=== PATIENT | female | born 2005 | race Caucasian/White ===

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

== ENCOUNTER → 2023-03-27 | Outpatient (RCR) | payer MEDICAID, OTHER ==
[2023-03-20] MEDS: cefTRIAXone 2,000 MG/NS 50 ML IVPB IV SCH ×2 (09:40)
[2023-03-20 10:05] VITALS: BP 130/78
[2023-03-21] MEDS: cefTRIAXone 2,000 MG/NS 50 ML IVPB IV SCH ×2 (09:18)
[2023-03-21] MEDS: CATHETER FLUSH 10 ML SYR IVP PRN (09:19)
[2023-03-21 09:31] VITALS: BP 102/52
[2023-03-22 09:00] VITALS: BP 127/84
[2023-03-22] MEDS: cefTRIAXone 2,000 MG/NS 50 ML IVPB IV SCH ×2 (09:02)
[2023-03-23 09:00] VITALS: BP 107/67
[2023-03-23] MEDS: cefTRIAXone 2,000 MG/NS 50 ML IVPB IV SCH ×4 (09:05→09:40)
[2023-03-23] MEDS: CATHETER FLUSH 10 ML SYR IVP PRN (09:05)
[2023-03-24 08:36] VITALS: BP 107/67
[2023-03-24] MEDS: cefTRIAXone 2,000 MG/NS 50 ML IVPB IV SCH ×2 (09:06)
[2023-03-25 08:48] VITALS: BP 107/67
[2023-03-25] MEDS: cefTRIAXone 2,000 MG/NS 50 ML IVPB IV SCH ×2 (09:01)
[2023-03-25] MEDS: CATHETER FLUSH 10 ML SYR IVP PRN (09:01)
[2023-03-26] MEDS: CATHETER FLUSH 10 ML SYR IVP PRN (09:00)
[2023-03-26] MEDS: cefTRIAXone 2,000 MG/NS 50 ML IVPB IV SCH ×2 (09:00)
[2023-03-26 09:16] VITALS: BP 117/72
[~2023-03-27] VITALS: Ht 175.3 cm; Wt 91.0 kg
[~2023-03-27] MED LIST changes: +ALBUTEROL; +BENZ100C18 PO; +CLIN-144; +DIPH-958; +DOXY100T2 PO; +FLUT16SP22; +GUAI1TBM19 PO; +MONT-47 PO; -MONT10TA21 PO; +NS (IVPB) 50 ML ONE; +cefTRIAXone 2,000 MG VIAL ONE
[2023-03-27] MEDS: cefTRIAXone 2,000 MG/NS 50 ML IVPB IV SCH ×2 (09:09)
[2023-03-27 09:22] VITALS: BP 116/74
== END | disposition home or self-care (01) ==
LOC: SDC 03-20 09:06
PROVIDERS: ATTEND Pediatrics
DX: A53.0 Latent syphilis, unspecified as early or late (principal); Z88.0 Allergy status to penicillin
CPT/HCPCS: 36410; 76937; 86592; 86780; 96365; C1751; 36415; 99211

== ENCOUNTER 2023-04-02 08:50 | Outpatient (RCR) | payer OTHER ==
[2023-03-28] MEDS: CATHETER FLUSH 10 ML SYR IVP PRN (09:04)
[2023-03-28] MEDS: cefTRIAXone 2,000 MG/NS 50 ML IVPB IV SCH ×2 (09:04)
[2023-03-28 09:05] VITALS: BP 104/74
[2023-03-29] MEDS: cefTRIAXone 2,000 MG/NS 50 ML IVPB IV SCH ×2 (09:21)
[2023-03-29 09:50] VITALS: BP 102/62
[2023-03-30] MEDS: cefTRIAXone 2,000 MG/NS 50 ML IVPB IV SCH ×2 (09:15)
[2023-03-30 09:45] VITALS: BP 114/76
[2023-03-31] MEDS: cefTRIAXone 2,000 MG/NS 50 ML IVPB IV SCH ×2 (08:59)
[2023-03-31 09:27] VITALS: BP 120/73
[2023-04-01] MEDS: cefTRIAXone 2,000 MG/NS 50 ML IVPB IV SCH ×2 (09:09)
[2023-04-01] MEDS: CATHETER FLUSH 10 ML SYR IVP PRN (09:09)
[2023-04-01 09:12] VITALS: BP 117/78
[~2023-04-02] VITALS: Ht 175.3 cm; Wt 91.0 kg
[~2023-04-02 08:50] MED LIST changes: -NS (IVPB) 50 ML ONE; -cefTRIAXone 2,000 MG VIAL ONE; +cefTRIAXone 2,000 MG/NS 50 ML IVPB IV SCH
[2023-04-02] MEDS: CATHETER FLUSH 10 ML SYR IVP PRN (09:00)
[2023-04-02 09:32] VITALS: BP 123/70
== END 2023-04-02 09:50 | disposition home or self-care (01) ==
LOC: SDC 08:50
PROVIDERS: ATTEND Pediatrics
DX: A53.0 Latent syphilis, unspecified as early or late (principal); Z88.0 Allergy status to penicillin
CPT/HCPCS: 96365

== ENCOUNTER 2023-06-12 14:26 | Emergency (ER) | payer SELFPAY ==
[~2023-06-12] VITALS: Ht 175.2 cm; Wt 90.7 kg
[~2023-06-12 14:26] MED LIST changes: -cefTRIAXone 2,000 MG/NS 50 ML IVPB IV SCH
[2023-06-12] MEDS ORDERED: CYCLOBENZAPRINE 10 MG TABLET PO STA (14:40)
[2023-06-12] MEDS ORDERED: CYCL10TA25 PO (14:44)
[2023-06-12] MEDS ORDERED: LIDO700A45 TP (14:44)
[2023-06-12] MEDS ORDERED: KETOROLAC INJ 30 MG/ML VIAL IM ONE (14:45)
--- NOTE | 2023-06-12 14:45 | ED Back Pain ---
General Chief Complaint: Back Problems Stated Complaint: LOWER BACK PAIN | INJ Nursing Triage Note: PT AMB TO [facility] WITH CC OF BACK PAIN X1 HR. PT STATES WAS BENDING OVER AT WORK WHEN SHE "TWISTED" HER BACK. DENIES FALLING OR OTHER INJURY. Source of Information: Patient Exam Limitations: No Limitations History of Present Illness Date Seen by Provider: Jun 12, 2023 Time Seen by Provider: 14:29 Initial Comments 18-year-old female with no pertinent past medical history coming in after she did a twisting movement picking something up at work and felt a pain in her marj k. She did not feel any type of popping, just felt more of a pulling sensation. Pain is more severe with movement, better with rest. She has had back issues in the past, but this seems to be new. She denies any type of fall or other injury. She has not had any medications for it as of yet. LMP was in the last month. Allergies and Home Medications Allergies Coded Allergies: Penicillins (Verified Allergy, Unknown, 10/26/08) Patient Home Medication List Home Medication List Reviewed: Yes Benzonatate (Tessalon Perles) 100 Mg Capsule, 100 MG PO TID Prescribed by: CELINA LAWLER on 08/16/22224 Clindamycin HCl (Clindamycin HCl) 300 Mg Capsule, (Reported) Entered as Reported by: MARK ROBERT on 08/16/22134 Diphenhydramine HCl (Banophen) 25 Mg Capsule, (Reported) Entered as Reported by: MARK ROBERT on 08/16/22134 Doxycycline Hyclate (Doxycycline Hyclate) 100 Mg Tablet, 100 MG PO BID Prescribed by: CELINA LAWLER on 08/16/22224 Fluticasone Propionate (Fluticasone Propionate) 50 Mcg/Actuation [place].susp, (Reported) Entered as Reported by: MARK ROBERT on 08/16/22134 Guaifenesin/Dextromethorphan (Mucinex Dm ER 1,200-60 mg Tab) 1,200 Mg-60 Mg Tbmp.12hr, 1 EACH PO BID Prescribed by: CELINA LAWLER on 08/16/22224 [Albuterol] , (Reported) Entered as Reported by: MARK ROBERT on 08/16/22134 Review of Systems Constitutional: No fever EENTM: no symptoms reported Respiratory: no symptoms reported Cardiovascular: no symptoms reported Gastrointestinal: no symptoms reported Genitourinary: no symptoms reported Musculoskeletal: see HPI Skin: no symptoms reported Psychiatric/Neurological: No Symptoms Reported Past Mukzaqd-Izcexy-Zwygpe Hx Patient Social History Tobacco Use?: Yes Tobacco type used: Cigarettes Smoking Status: Current Everyday Smoker Substance use?: No Alcohol Use?: No Immunizations Up To Date Tetanus Booster (TDap): Less than 5yrs First/Initial COVID19 Vaccinat: NA Second COVID19 Vaccination Seth: NA Third COVID19 Vaccination Date: NA Seasonal Allergies Seasonal Allergies: Yes Past Medical History Surgery/Hospitalization HX: ASTHMA, DEPRESSION Surgeries: Yes Tonsillectomy Respiratory: Yes Asthma Cardiac: No Neurological: No Reproductive Disorders: No Sexually Transmitted Disease: No Genitourinary: No Gastrointestinal: No Musculoskeletal: No Endocrine: No HEENT: No Cancer: No Psychosocial: Yes Depression Integumentary: No Blood Disorders: No Family Medical History Asthma Physical Exam Vital Signs Vital Signs - First Documented 06/12/23 14:32 Pulse 66 Resp 18 B/P (MAP) 128/77 (94) Pulse Ox 97 O2 Delivery Room Air Capillary Refill : Less Than 3 Seconds Height, Weight, BMI Height: 5'9.00" Weight: 190lbs. oz. 86.449037st; 29.00 BMI Method:Stated General Appearance: No Apparent Distress, WD/WN HEENT: PERRL/EOMI, Normal ENT Inspection, Pharynx Normal Neck: Full Range of Motion, Normal Inspection, Non Tender, Supple Cardiovascular: Regular Rate, Rhythm, No Edema, Normal Peripheral Pulses Respiratory: Chest Non Tender, Lungs Clear, Normal Breath Sounds, No Accessory Muscle Use, No Respiratory Distress Back: Normal Inspection, No CVA Tenderness, No Vertebral Tenderness, Other (Paravertebral tenderness in the right lower) Extremity: Normal Capillary Refill, Normal Inspection, Normal Range of Motion, Non Tender, No Calf Tenderness, No Pedal Edema, Other (No pain with logroll) Neurologic/Psychiatric: Alert, No Motor/Sensory Deficits, Normal Mood/Affect, Other (Antalgic gait) Skin: Normal Color, Warm/Dry Progress/Results/Core Measures Results/Orders Vital Signs/I&O 06/12/23 14:32 Pulse 66 Resp 18 B/P (MAP) 128/77 (94) Pulse Ox 97 O2 Delivery Room Air Blood Pressure Mean: 94 Progress Progress Note : Progress Note 18-year-old female with above history coming in due to low back pain after twisting it unusually at work. ABCs were intact and vitals were stable on presentation. She has no red flags including no trauma, no weakness or numbness, no bowel or bladder issues. Seems to be more muscular in nature on exam. We will give her a shot of Toradol here as well as a Flexeril followed by prescription. I recommended if she is not seeing improvement in the next couple weeks to have follow-up with an orthopedist and potentially needs physical therapy at that point as well. Departure Impression Primary Impression: Low back strain Qualified Codes: S39.012A - Strain of muscle, fascia and tendon of lower back, initial encounter Disposition: HOME, SELF-CARE Condition: Stable Departure-Patient Inst. Decision time for Depature: 14:55 Referrals: NO,LOCAL PHYSICIAN (PCP/Family) Primary Care Physician Patient Instructions: Low Back Pain ED Add. Discharge Instructions: This seems to be muscular in nature. Give it a couple weeks with gentle movement and stretching at home to see if it improves. If you are not seeing i mprovement at that time, we recommend following up with an pest control specialist. You can try normal things such as heating pads, ibuprofen and Tylenol [id number]. We recommend taking ibuprofen 600 mg every 6-8 hours while awake scheduled for at least the next 3 days. We will also send a prescription to your pharmacy for a muscle relaxer and a lidocaine patch that can be placed where you hurt the most. Scripts Lidocaine (Lidocaine 5% Patch) 5 % Adh..patch 1 EACH TP Q12H PRN for Neuropathic pain MDD 2 for 7 Days, #14 PATCH 2 patches max for 12 hours, then 12 hours patch-free period. Prov: COCO REED MD 06/12/23 Cyclobenzaprine HCl (Cyclobenzaprine HCl) 10 Mg Tablet 10 MG PO Q8H PRN for SPASMS for 5 Days, #15 TAB 0 Refills Prov: COCO REED MD 06/12/23 Work/School Note: Work Release Form Date Seen in the Emergency Department: Jun 12, 2023 Return to Work: Jun 14, 2023 Restrictions: No Restrictions COCO REED MD Jun 12, 2023 14:45
[2023-06-12 15:02] VITALS: BP 128/77
== END 2023-06-12 15:02 | disposition home or self-care (01) ==
LOC: EDUNIT# 14:26 → ER 14:29
DX: S39.012A Strain of muscle, fascia and tendon of lower back, initial encounter (principal); F17.210 Nicotine dependence, cigarettes, uncomplicated; Z28.310 Unvaccinated for COVID-19; X50.1XXA Overexertion from prolonged static or awkward postures, initial encounter; Y92.59 Other trade areas as the place of occurrence of the external cause; Y99.0 Civilian activity done for income or pay
CPT/HCPCS: 99284